=== PATIENT | female | born 1945 | race Caucasian/White ===

== ENCOUNTER → 2017-08-09 | Outpatient (CLI) | payer MEDICARE ==
--- NOTE | 2017-08-09 15:33 | Diagnostic Imaging Report ---
Exam: Head CT without contrast History: Increased confusion, history of breast cancer, weakness Comparison studies: None Technique: Axial images were obtained from the skull base to the vertex. Coronal and sagittal images reconstructed from the axial data. Intravenous contrast: None Findings: Scalp: No abnormalities. Bones: Innumerable scattered lytic metastases throughout the calvarium, skull base and remaining visualized bones. Brain sulci: Mildly prominent Ventricles: Mild compensatory lytic. No hydrocephalus. Extra-axial spaces: No masses, no fluid collection. Parenchyma: No acute hemorrhage or acute or chronic cortical vascular insults. No gross mass. A few subtle hypodensities in the supratentorial white matter are nonspecific but most compatible with chronic small vessel ischemic changes. Sellar/suprasellar region: No abnormalities. Craniocervical junction: Patent foramen magnum. No Chiari one malformation. Incidental findings: Atherosclerotic calcifications in the carotid siphons and intradural vertebral arteries. IMPRESSION: 1. No acute intracranial abnormalities or gross intra-axial mass. 2. Mild generalized volume loss. 3. Mild chronic microvascular ischemic changes. 4. Diffuse osseous metastatic disease. If there remains persistent concern for intracranial metastatic disease, recommend brain MRI without/with IV contrast to further evaluate. Signed by: Dr. Mark Ordonez M.D. on 08/09/2017 3:29 PM
== END ==
LOC: CT 13:51
DX: R06.00 Dyspnea, unspecified (principal); I26.99 Other pulmonary embolism without acute cor pulmonale
CPT/HCPCS: 70450